=== PATIENT | male | born 1995 | race Caucasian/White ===

== ENCOUNTER 2016-08-16 14:44 | Emergency (ER) | payer BC ==
[2016-08-16 16:14] VITALS: BP 119/59
--- NOTE | 2016-08-16 17:03 | UC ---
Throat Pain/Nasal Moshe HPI - History of Current Complaint Chief Complaint: UCGeneralIllness Stated Complaint: SORE THROAT Time Seen by Provider: 08/16/16 16:43 - Allergies/Home Medications Allergies/Adverse Reactions: Allergies Allergy/AdvReac Type Severity Reaction Status Date / Time Sulfa Antibiotics Allergy Intermediate Hives Verified 08/16/16 16:12 Home Medications: Home Medications Lisdexamfetamine Dimesylate [Vyvanse] 30 mg PO DAILY 08/16/16 [History Confirmed 08/16/16] Sertraline* [Zoloft*] 100 mg PO DAILY 08/16/16 [History Confirmed 08/16/16] PMH/Surg Hx/FS Hx/Imm Hx Previously Healthy: Yes Respiratory History Of: Reports: Asthma - illness induced - Surgical History Surgical History: Yes Surgery Procedure, Year, and Place: right index finger tendon shortened 2015, pin right hip - Family History Known Family History: Positive: Hypertension - Social History Alcohol Use: Weekly Substance Use Type: None Smoking Status (MU): Never Smoked Tobacco Review of Systems Constitutional: Fever, Fatigue Skin: Negative Eyes: Negative ENT: Sore Throat Respiratory: Negative Cardiovascular: Negative Gastrointestinal: Negative Genitourinary: Negative Motor: Negative Neurovascular: Negative Musculoskeletal: Myalgia Neurological: Negative Psychological: Negative All Other Systems Reviewed And Are Negative: Yes Physical Exam Triage Information Reviewed: Yes Appearance: Well-Nourished, Ill-Appearing, Pain Distress Vital Signs: Initial Vital Signs Temp 99.3 F 08/16/16 16:12 Pulse 82 08/16/16 16:12 Resp 16 08/16/16 16:12 BP 119/59 08/16/16 16:12 Pulse Ox 99 08/16/16 16:12 Vital Signs Reviewed: Yes Eye Exam: Normal Eyes: Positive: Conjunctiva Clear ENT: Positive: Hearing grossly normal, Pharyngeal erythema, TMs normal, TM red Dental Exam: Normal Neck exam: Normal Neck: Positive: Supple, Nontender, Enlarged Nodes @ - bilateral cervical Respiratory Exam: Normal Respiratory: Positive: Chest non-tender, Lungs clear, Normal breath sounds Cardiovascular Exam: Normal Cardiovascular: Positive: RRR, No Murmur, Pulses Normal Abdominal Exam: Normal Abdomen Description: Positive: Nontender, No Organomegaly, Soft Bowel Sounds: Positive: Present Musculoskeletal Exam: Normal Musculoskeletal: Positive: Strength Intact, ROM Intact, No Edema Neurological Exam: Normal Neurological: Positive: Alert, Muscle Tone Normal Psychological Exam: Normal Skin Exam: Normal Throat Pain/Nasal Course/Dx - Course Course Of Treatment: hx obtained, exam performed, neg rapid strep, monospot obtained due to his main complaint being swollen lymph nodes and fatique. no meds prescribed - Differential Dx/Diagnosis Differential Diagnosis/HQI/PQRI: Influenza, Laryngitis, Mononucleosis, Pharyngitis, Tonsillitis, URI Provider Diagnoses: lymphadenopathy. sore throat. fatigue fever Discharge - Discharge Plan Condition: Stable Disposition: HOME Patient Education Materials: Lymphadenopathy (ED) Additional Instructions: your strep test was negative. we yanet blood work to rule out mono. Continue with motrin for fever and pain, get plenty of rest and increase your fluids to maintain hydration.
[2016-08-16 19:36] LABS: EBV Response YES
[2016-08-16 20:14] LABS: Manual Entry Verification ROB0080; Mono Internal Control QC Line Present
[2016-08-18 12:17] LABS: EBV Capsid Ag IgG Ab Positive (Negative); EBV Capsid Ag IgM Ab Negative (Negative)
== END 2016-08-16 17:21 | disposition home or self-care (01) ==
LOC: UCCORT 14:44
DX: R59.0 Localized enlarged lymph nodes (principal); R50.9 Fever, unspecified; R53.83 Other fatigue; Z88.2 Allergy status to sulfonamides
CPT/HCPCS: 36415; 86308; 86664; 86665; 87651; 99201; G0463